=== PATIENT | male | born 1940 | race Caucasian/White ===

== ENCOUNTER 2017-11-06 11:53 | Emergency (ER) | payer MEDICARE, OTHER ==
[2017-11-06 13:05] LABS: Absolute Lymphocytes (CBC) 2.2 K/uL (0.7-4.9); Absolute Monocytes 0.6 K/uL (0.1-1.3); Absolute Neutrophil 5.1 K/uL (1.8-8.0); Basophils % 1.4 % (0-1.3); Eosinophils % 1.9 % (0-4.4); Hematocrit 42.8 % (39.6-49.0); Lymphocytes % 27.2 % (15.3-44.8); MCH 31.9 pg (27.0-35.0); MCV 95.4 fL (80-100); MPV 8.8 fL (7.6-11.3); Monocytes % 7.3 % (3.3-12.3); RBC Red Blood Cell Count 4.49 M/uL (4.33-5.43)
[2017-11-06 13:37] LABS: Protime INR 1.03
[2017-11-06 14:33] LABS: ALT/SGPT 21 U/L (12-78); AST/SGOT 15 U/L (15-37); Albumin 3.3 g/dL (3.4-5.0); Alcohol Serum/Plasma < 3 mg/dL (<3); Alkaline Phosphatase 71 U/L (45-117); BUN Blood Urea Nitrogen 16 mg/dL (7-18); Bicarbonate 27 mmol/L (21-32); Bilirubin Direct 0.1 mg/dL (0-0.2); Bilirubin Total 0.4 mg/dL (0.2-1.0); CKMB Creatine Kinase MB < 1.0 ng/mL (0.3-3.6); Creatine Phosphokinase 26 U/L (39-308); Glucose Level 136 mg/dL (74-106); Magnesium 2.1 mg/dL (1.8-2.4); NT PRO-BNP 1077 pg/mL (<450); Potassium 3.4 mmol/L (3.5-5.1); Protein, Total 6.9 g/dL (6.4-8.2); Sodium Level 147 mmol/L (136-145)
--- NOTE | 2017-11-06 14:34 | EKG ---
Test Date: 2017-11-06 Test Time: 12:23:22 Instant Print Operator: FLORIAN MEASUREMENT RESULTS: Intervals: Rate: 67 RI: QRSD: 174 QT: 478 QTc: 505 [place]: P: RI: QRS: -84 T: 90 INTERPRETIVE STATEMENTS: Ventricular-paced rhythm with occasional premature ventricular complexes Abnormal ECG No previous ECG available for comparison Electronically Signed On 11-06-17 14:33:27 CDT by Rl Patterson
--- NOTE | 2017-11-06 14:44 | RAD REPORT ---
EXAM DESCRIPTION: Omer Single View11/06/2017 1:36 pm CLINICAL HISTORY: Shortness of breath COMPARISON: 2011 FINDINGS: Left base is mildly hazy. The right lung appears clear of acute infiltrate. The heart is normal size. Pacemaker lead is in place IMPRESSION: Mild haziness to the left base may be secondary to atelectasis or mild infiltrate
[2017-11-06] MEDS ORDERED: NA CHLORIDE 0.9% 0 ML ONE (15:12)
[2017-11-06 15:17] LABS: Barbiturates NEGATIVE (NEGATIVE); Benzodiazepines POSITIVE (NEGATIVE); Cocaine NEGATIVE (NEGATIVE); METHAMPHETAM NEGATIVE (NEGATIVE); Methadone NEGATIVE (NEGATIVE); Opiates NEGATIVE (NEGATIVE); Phencyclidine NEGATIVE (NEGATIVE); THC Cannibis NEGATIVE (NEGATIVE)
[2017-11-06 15:25] LABS: Urine Blood NEGATIVE (NEG); Urine Glucose TRACE (NEG); Urine Protein 1+ (NEG)
--- NOTE | 2017-11-06 17:01 | ER ---
Nurse's Notes [facility] Name: Anuj Giron Age: 77 yrs Sex: Male : 1940 Arrival Date: 11/06/2017 Time: 11:57 Bed 26 Private MD: Diagnosis: Suicidal ideations-resolved;Essential (primary) hypertension;Type 2 diabetes mellitus;Unspecified kidney failure;Volume depletion-mild;Hypo-osmolality and hyponatremia Presentation: 11/06 11:55 Presenting complaint: EMS states: pt initial call was for difficulty breathing, upon tw2 arrival he said he feels dizzy and weak and that his SOB is nothing new, he states he wanted the [facility] to put the rope over the tree limb and that he has thought about killing himself for over a week or so now but he cant get the rope over the limb, vs stable 130/70's hr 50-80's on demand pacemaker, 167 BGL, 20g right ac, 300 ml NS. Transition of care: patient was not received from another setting of care. Onset of symptoms was November 06, 2017. Risk Assessment: Do you want to hurt yourself or someone else? Patient reports desire/thoughts of hurting themselves or someone else. Provider notified. Initial Sepsis Screen:. Care prior to arrival: Medication(s) given: Normal saline infusion, 300 ml IV initiated. 20 GA, in the right antecubital area, Glucose check: 167. 11:55 Method Of Arrival: [facility] tw2 11:55 Acuity: CAMPBELL 2 tw2 12:18 Initial Sepsis Screen: Does the patient meet any 2 criteria? No. Patient's initial tw2 sepsis screen is negative. Does the patient have a suspected source of infection? No. Patient's initial sepsis screen is negative. Historical: - Allergies: 12:04 No Known Allergies; tw2 - Home Meds: 12:04 "cant get to town to get them" [Active]; tw2 - PMHx: 12:04 Hypertension; Diabetes - NIDDM; VT; tw2 - PSHx: 12:04 pacemaker; tw2 - Immunization history:: Adult Immunizations unknown. - Social history:: Smoking status: Patient/guardian denies using tobacco. - Ebola Screening: : Patient denies exposure to infectious person Patient denies travel to an Ebola-affected area in the 21 days before illness onset. Screenin:16 Abuse screen: Denies threats or abuse. Nutritional screening: No deficits noted. tw2 Tuberculosis screening: No symptoms or risk factors identified. Fall Risk None identified. Assessment: 11:55 General: Appears in no apparent distress. unkempt, Behavior is calm, cooperative. Pain: tw2 Denies pain. Neuro: Level of Consciousness is awake, alert, obeys commands, Oriented to person, place, situation. Cardiovascular: Denies chest pain, shortness of breath, Heart tones S1 S2 Capillary refill < 3 seconds Patient's skin is warm and dry. Respiratory: Airway is patent Respiratory effort is even, unlabored, Respiratory pattern is regular, symmetrical. GI: No signs and/or symptoms were reported involving the gastrointestinal system. Abdomen is flat, Bowel sounds present X 4 quads. : No signs and/or symptoms were reported regarding the genitourinary system. EENT: No signs and/or symptoms were reported regarding the EENT system. Derm: Skin is intact, is healthy with good turgor, Skin is dry. Musculoskeletal: Range of motion: intact in all extremities. 12:31 Reassessment: provider Dr. Sanders at bedside at this time. tw2 13:01 Reassessment: Patient appears in no apparent distress at this time. Patient and/or tw2 family updated on plan of care and expected duration. Pain level reassessed. Patient is alert, oriented x 3, equal unlabored respirations, skin warm/dry/pink. 14:00 Reassessment: Patient appears in no apparent distress at this time. Patient and/or tw2 family updated on plan of care and expected duration. Pain level reassessed. Patient is alert, oriented x 3, equal unlabored respirations, skin warm/dry/pink. pt sleeping at this time, did eat dietary meal provided. 15:17 Reassessment: Patient appears in no apparent distress at this time. Patient and/or tw2 family updated on plan of care and expected duration. Pain level reassessed. Patient is alert, oriented x 3, equal unlabored respirations, skin warm/dry/pink. asked pt if i could get some blood from his iv line, pt states "no, get away from me, i dont want to do nothing", encouraged pt as to why i needed the additional blood and that i would not have to stick him again, pt states "no, get away from me, im not giving you anything", pt offered water and sprite at this time,pt refused. 16:14 Reassessment: Patient appears in no apparent distress at this time. Patient and/or tw2 family updated on plan of care and expected duration. Pain level reassessed. Patient is alert, oriented x 3, equal unlabored respirations, skin warm/dry/pink. 17:01 Reassessment: [facility], tw2 discharge papers pending, pt states "well yall are a bunch of damn liars". Psych: 11:55 Subjective: Patient's mood is sad, Delusions are denied, Hallucinations are denied tw2 Having thoughts of suicide. Plan for suicide is "several different ways, but i just couldn't get the rope over the tree to hang myself and nobody gives a damn to help me". Objective: Patient is cooperative, Speech is soft, Affect is flat. Interventions: Removed personal items and placed in bag. Patient placed in hospital gown. Suicide Risk Assessment: Sad Person Scale: Sex of patient: Male: Score 1 point. Age of patient: Score 1 point if patient is over 65. Depression: Score 1 point if signs of depression are present. Previous Attempt: Score 0 point if patient has not previously attempted suicide. Substance Abuse: Score 0 point if patient does not abuse alcohol or drugs. Rational Thinking: Score 1 point if patient is lacking rational thinking. Social Support: Score 1 point if social support is lacking and/or unavailable. Organized Plan: Score 1 point if patient had a plan in place. Relationship: Score 1 point if patient is , , , or for a single male Chronic Sickness: Score 1 point if patient has illness, chronic, debilitating, or severe. TOTAL POINTS: If total points are 7-10, the proposed clinical action is to hospitalize or commit. Implement suicide precautions. Safety Checks: Personal items have been removed. Pt denies substance abuse. Commitment: Patient will be a voluntary commitment. Vital Signs: 12:05 BP 142 / 63 LA Supine (auto/lg); Pulse 61; Resp 18; Pulse Ox 100% on R/A; Pain 0/10; tw2 12:27 Temp 97.6(TE); tw2 13:05 BP 142 / 96 LA Sitting (auto/lg); Pulse 93; Pulse Ox 100% on R/A; jp3 ED Course: 11:55 No apparent distress. Safety Checks: Personal items have been removed. The door is open tw2 or patient has been placed in a hallway bed/chair. There are no family/friend visitors at this time Sitter present at this time. 11:55 Arm band placed on Patient placed in an exam room. tw2 11:57 Patient arrived in ED. tw2 12:00 Safety Checks: Personal items have been removed. The door is open or patient has been tw2 placed in a hallway bed/chair. There are no family/friend visitors at this time Sitter present at this time. 12:00 Safety checks: Items removed: yes. Door open/sign placed on door: yes. Family/friend jp3 present: no. Sitter present: Yes. Patient has correct armband on for positive identification. Placed in gown. Side rails up X2. Valuables Left with patient. Warm blanket given. Pillow given. Sitter at bedside. 12:01 Triage completed. tw2 12:06 Dina Orellana, GEMMA is Primary Nurse. tw2 12:10 Heri Sanders MD is Attending Physician. [facility] 12:10 Maintain EMS IV. Dressing intact. Good blood return noted. Site clean \\T\\ dry. Gauge \\T\\ alfredo 3 site: 20 gauge, Right A/C. Flushed right antecubital saline lock. 12:15 No apparent distress. Resting quietly. Safety Checks: Personal items have been removed. tw2 The door is open or patient has been placed in a hallway bed/chair. There are no family/friend visitors at this time Sitter present at this time. 12:15 Safety checks: Items removed: yes. Door open/sign placed on door: yes. Family/friend alfredo3 present: no. Sitter present: Yes. 12:25 Initial lab(s) drawn, by me, held in ED. jp3 12:30 Appears agitated. Appears angry. Safety Checks: Personal items have been removed. The tw2 door is open or patient has been placed in a hallway bed/chair. There are no family/friend visitors at this time Dr. Sanders asking pt questions, pt got angry, sat up and started yelling "leave me the fuck alone, I dont want no body poking on me". 12:30 Safety checks: Items removed: yes. Door open/sign placed on door: yes. Family/friend jp3 present: no. Sitter present: Yes. 12:33 EKG done, by prior authorization technician. reviewed by Heri Sanders MD. at1 12:35 No apparent distress. pt laid back down quickly after conversation with Dr. Sanders. tw2 12:35 Diet: Patient given a regular meal tray. jp3 12:35 Initial lab(s) drawn, by me, sent to lab. jp3 12:45 No apparent distress. sitting up in bed states "i want my pants back and to get the tw2 hell out of here", pt reoriented to need to see [facility]. Safety Checks: Personal items have been removed. The door is open or patient has been placed in a hallway bed/chair. There are no family/friend visitors at this time Sitter present at this time. 12:45 Safety checks: Items removed: yes. Door open/sign placed on door: yes. Family/friend jp3 present: no. Sitter present: Yes. 13:00 Safety Checks: Personal items have been removed. The door is open or patient has been tw2 placed in a hallway bed/chair. There are no family/friend visitors at this time Sitter present at this time. 13:00 Safety checks: Items removed: yes. Door open/sign placed on door: yes. Family/friend jp3 present: no. Sitter present: Yes. 13:15 No apparent distress. Resting quietly. Safety Checks: Personal items have been removed. tw2 The door is open or patient has been placed in a hallway bed/chair. There are no family/friend visitors at this time Sitter present at this time. 13:15 Safety checks: Items removed: yes. Door open/sign placed on door: yes. Family/friend jp3 present: no. Sitter present: Yes. 13:30 Safety Checks: Personal items have been removed. The door is open or patient has been tw2 placed in a hallway bed/chair. There are no family/friend visitors at this time Sitter present at this time. 13:30 Safety checks: Items removed: yes. Door open/sign placed on door: yes. Family/friend jp3 present: no. Sitter present: Yes. 13:35 Warm blanket given. jp3 13:36 XRAY Chest (1 view) In Process Unspecified. EDMS 13:45 Safety Checks: Personal items have been removed. The door is open or patient has been tw2 placed in a hallway bed/chair. There are no family/friend visitors at this time Sitter present at this time. 13:45 Safety checks: Items removed: yes. Door open/sign placed on door: yes. Family/friend jp3 present: no. Sitter present: Yes. 14:00 No apparent distress. Resting quietly. Safety Checks: Personal items have been removed. tw2 The door is open or patient has been placed in a hallway bed/chair. There are no family/friend visitors at this time Sitter present at this time. 14:00 Safety checks: Items removed: yes. Door open/sign placed on door: yes. Family/friend jp3 present: no. Sitter present: Yes. 14:15 Safety Checks: Personal items have been removed. The door is open or patient has been tw2 placed in a hallway bed/chair. There are no family/friend visitors at this time Sitter present at this time. 14:15 Safety checks: Items removed: yes. Door open/sign placed on door: yes. Family/friend es1 present: no. Sitter present: Yes. Assisted with urinal. 14:23 Urine collected: clean catch specimen, clear, juliana colored. es1 14:30 No apparent distress. Resting quietly. Safety Checks: Personal items have been removed. tw2 The door is open or patient has been placed in a hallway bed/chair. There are no family/friend visitors at this time Sitter present at this time. 14:30 Safety checks: Items removed: yes. Door open/sign placed on door: yes. Family/friend es1 present: no. Sitter present: Yes. 14:45 Safety Checks: Personal items have been removed. The door is open or patient has been tw2 placed in a hallway bed/chair. There are no family/friend visitors at this time Sitter present at this time. 14:45 Safety checks: Items removed: yes. Door open/sign placed on door: yes. Family/friend es1 present: no. Sitter present: Yes. 15:00 Safety Checks: Personal items have been removed. The door is open or patient has been tw2 placed in a hallway bed/chair. There are no family/friend visitors at this time Sitter present at this time. 15:00 Safety checks: Items removed: yes. Door open/sign placed on door: yes. Family/friend es1 present: no. Sitter present: Yes. 15:15 Safety Checks: Personal items have been removed. The door is open or patient has been tw2 placed in a hallway bed/chair. There are no family/friend visitors at this time Sitter present at this time. 15:30 Safety Checks: Personal items have been removed. The door is open or patient has been tw2 placed in a hallway bed/chair. There are no family/friend visitors at this time Sitter present at this time. 15:36 No apparent distress. Resting quietly. pt refused additional blood draw at this time, tw2 provider notified, pt remained laying down but refused to allow access to his iv, has arms curled at this side. 15:45 Safety Checks: Personal items have been removed. The door is open or patient has been tw2 placed in a hallway bed/chair. There are no family/friend visitors at this time Sitter present at this time. 16:00 No apparent distress. Resting quietly. Safety Checks: Personal items have been removed. tw2 The door is open or patient has been placed in a hallway bed/chair. There are no family/friend visitors at this time Sitter present at this time. 16:15 Safety Checks: Personal items have been removed. The door is open or patient has been tw2 placed in a hallway bed/chair. There are no family/friend visitors at this time Sitter present at this time. 16:30 Safety Checks: Personal items have been removed. The door is open or patient has been tw2 placed in a hallway bed/chair. There are no family/friend visitors at this time Sitter present at this time. 16:45 No apparent distress. Resting quietly. Safety Checks: Personal items have been removed. tw2 The door is open or patient has been placed in a hallway bed/chair. There are no family/friend visitors at this time Sitter present at this time. 17:01 No provider procedures requiring assistance completed. IV discontinued, intact, tw2 bleeding controlled, No redness/swelling at site. Pressure dressing applied. Administered Medications: 14:35 Not Given (Patient Refused): NS 0.9% 500 ml IV at bolus once tw2 15:11 Not Given (Patient Refused): NS 0.9% 1000 ml IV at 1 bolus Per protocol; 1000 mL bolus ss 16:13 Not Given (Patient Refused): Potassium Effervescent Tablet 25 mEq PO once; dissolve in tw2 4 ounces of water or juice Outcome: 17:00 Discharge ordered by MD. perez 17:02 Discharged to [facility] tw2 17:02 Condition: stable 17:02 Instructed on discharge instructions. 17:05 Patient left the ED. jp3 Signatures: Dispatcher [employer] EDMS Heri Sanders MD MD cha gonzales, Amanda, group rooms coordinator EKG Tat1 Dina Orellana, RN RN tw2 Arthur Truong jp3 Giselle Shahid es1 Luisa Guerra RN ss Corrections: (The following items were deleted from the chart) 12:16 12:05 BP 142 / 63 Supine Auto L Arm Large; Pulse 61bpm; Pulse Ox 100% RA; jp3 tw2 15:36 15:17 Reassessment: asked pt if i could get some blood from his iv line, pt states "no, tw2 get away from me, i dont want to do nothing", encouraged pt as to why i needed the additional blood and that i would not have to stick him again, pt states "no, get away from me, im not giving you anything", pt offered water and sprite at this time,pt refused tw2
--- NOTE | 2017-11-06 17:02 | EDPHYS ---
Physician Documentation [facility] Name: Anuj Giron Age: 77 yrs Sex: Male : 1940 Arrival Date: 11/06/2017 Time: 11:57 Bed 26 Private MD: ED Physician Heri Sanders HPI: 11/06 12:40 This 77 yrs old Male presents to ER via EMS with complaints of Suicidal chris Ideation, Dizziness. 12:40 This 77 yrs old Male presents to ER via EMS with complaints of Suicidal chris Ideation, Dizziness. 12:40 The patient presents to the emergency department with anxiety, depression. Onset: The chris symptoms/episode began/occurred 2 day(s) ago. Past psychiatric history: Prior diagnosis: no previous psychiatric diagnosis known. Associated signs and symptoms: The patient has no apparent associated signs or symptoms. Severity of symptoms: At their worst the symptoms were very mild in the emergency department the symptoms are unchanged. It is unknown whether or not the patient has had similar symptoms in the past. Historical: - Allergies: 12:04 No Known Allergies; tw2 - Home Meds: 12:04 "cant get to town to get them" [Active]; tw2 - PMHx: 12:04 Hypertension; Diabetes - NIDDM; AR; tw2 - PSHx: 12:04 pacemaker; tw2 - Immunization history:: Adult Immunizations unknown. - Social history:: Smoking status: Patient/guardian denies using tobacco. - Ebola Screening: : Patient denies exposure to infectious person Patient denies travel to an Ebola-affected area in the 21 days before illness onset. ROS: 12:41 Constitutional: Negative for fever, chills, and weight loss, Eyes: Negative for injury, chris pain, redness, and discharge, ENT: Negative for injury, pain, and discharge, Neck: Negative for injury, pain, and swelling, Cardiovascular: Negative for chest pain, palpitations, and edema, Respiratory: Negative for shortness of breath, cough, wheezing, and pleuritic chest pain, Abdomen/GI: Negative for abdominal pain, nausea, vomiting, diarrhea, and constipation, Back: Negative for injury and pain, : Negative for injury, bleeding, discharge, and swelling, MS/Extremity: Negative for injury and deformity, Skin: Negative for injury, rash, and discoloration, Neuro: Negative for headache, weakness, numbness, tingling, and seizure, Allergy/Immunology: Negative for hives, rash, and allergies, Endocrine: Negative for neck swelling, polydipsia, polyuria, polyphagia, and marked weight changes, Hematologic/Lymphatic: Negative for swollen nodes, abnormal bleeding, and unusual bruising. 12:41 Psych: Positive for suicidal ideation. Exam: 12:41 Constitutional: This is a well developed, well nourished patient who is awake, alert, chris and in no acute distress. Head/Face: Normocephalic, atraumatic. Eyes: Pupils equal round and reactive to light, extra-ocular motions intact. Lids and lashes normal. Conjunctiva and sclera are non-icteric and not injected. Cornea within normal limits. Periorbital areas with no swelling, redness, or edema. ENT: Nares patent. No nasal discharge, no septal abnormalities noted. Tympanic membranes are normal and external auditory canals are clear. Oropharynx with no redness, swelling, or masses, exudates, or evidence of obstruction, uvula midline. Mucous membranes moist. Neck: Trachea midline, no thyromegaly or masses palpated, and no cervical lymphadenopathy. Supple, full range of motion without nuchal rigidity, or vertebral point tenderness. No Meningismus. Chest/axilla: Normal chest wall appearance and motion. Nontender with no deformity. No lesions are appreciated. Cardiovascular: Regular rate and rhythm with a normal S1 and S2. No gallops, murmurs, or rubs. Normal PMI, no JVD. No pulse deficits. Respiratory: Lungs have equal breath sounds bilaterally, clear to auscultation and percussion. No rales, rhonchi or wheezes noted. No increased work of breathing, no retractions or nasal flaring. Abdomen/GI: Soft, non-tender, with normal bowel sounds. No distension or tympany. No guarding or rebound. No evidence of tenderness throughout. Back: No spinal tenderness. No costovertebral tenderness. Full range of motion. Male : Normal genitalia with no discharge or lesions. Skin: Warm, dry with normal turgor. Normal color with no rashes, no lesions, and no evidence of cellulitis. MS/ Extremity: Pulses equal, no cyanosis. Neurovascular intact. Full, normal range of motion. Neuro: Awake and alert, GCS 15, oriented to person, place, time, and situation. Cranial nerves II-XII grossly intact. Motor strength 5/5 in all extremities. Sensory grossly intact. Cerebellar exam normal. Normal gait. 12:41 Psych: Behavior/mood is aggressive, Affect is animated, Oriented to person, place, time, Patient has no thoughts/intents to harm self or others. Judgement / Insight is not able to determine. Vital Signs: 12:05 BP 142 / 63 LA Supine (auto/lg); Pulse 61; Resp 18; Pulse Ox 100% on R/A; Pain 0/10; tw2 12:27 Temp 97.6(TE); tw2 13:05 BP 142 / 96 LA Sitting (auto/lg); Pulse 93; Pulse Ox 100% on R/A; jp3 MDM: 12:10 Patient medically screened. [facility] 12:42 Data reviewed: vital signs, nurses notes, lab test result(s), EKG, radiologic studies. [facility] 11/06 12:39 Order name: Basic Metabolic Panel; Complete Time: 14:42 [facility] 11/06 12:39 Order name: CBC with Diff; Complete Time: 14:07 [facility] 11/06 12:39 Order name: Ckmb; Complete Time: 14:42 [facility] 11/06 12:39 Order name: CPK; Complete Time: 14:42 [facility] 11/06 12:39 Order name: LFT's; Complete Time: 14:42 [facility] 11/06 12:39 Order name: Magnesium; Complete Time: 14:42 [facility] 11/06 12:39 Order name: NT PRO-BNP; Complete Time: 14:42 [facility] 11/06 12:39 Order name: PT-INR; Complete Time: 14:07 [facility] 11/06 12:39 Order name: Ptt, Activated; Complete Time: 14:07 [facility] 11/06 12:39 Order name: Troponin (emerg Dept Use Only); Complete Time: 14:07 [facility] 11/06 12:39 Order name: Urine Culture [facility] 11/06 12:39 Order name: TSH; Complete Time: 14:42 [facility] 11/06 12:39 Order name: Acetaminophen; Complete Time: 14:42 [facility] 11/06 12:39 Order name: ETOH Level; Complete Time: 14:42 [facility] 11/06 12:15 Order name: Diet Ada 1800 Aamir; Complete Time: 12:15 tw2 11/06 12:39 Order name: XRAY Chest (1 view); Complete Time: 15:33 [facility] 11/06 12:39 Order name: EKG; Complete Time: 12:40 [facility] 11/06 12:39 Order name: Cardiac monitoring; Complete Time: 12:40 [facility] 11/06 12:39 Order name: EKG - Nurse/Tech; Complete Time: 12:40 [facility] 11/06 12:39 Order name: IV Saline Lock; Complete Time: 12:40 [facility] 11/06 12:39 Order name: Labs collected and sent; Complete Time: 12:40 [facility] 11/06 12:39 Order name: O2 Per Protocol; Complete Time: 12:40 [facility] 11/06 12:39 Order name: Salicylate; Complete Time: 14:07 [facility] 11/06 12:39 Order name: Urine Drug Screen; Complete Time: 15:33 [facility] 11/06 14:23 Order name: Urine Dipstick--Ancillary (enter results); Complete Time: 15:33 11/06 14:45 Order name: AMMONIA [facility] 11/06 14:45 Order name: Tylenol Level [facility] 11/06 12:39 Order name: O2 Sat Monitoring; Complete Time: 12:40 [facility] 11/06 12:39 Order name: Urine Dipstick-Ancillary (obtain specimen); Complete Time: 14:27 [facility] 11/06 12:39 Order name: Urine Dipstick-Ancillary (obtain specimen); Complete Time: 14:27 [facility] Administered Medications: 14:35 Not Given (Patient Refused): NS 0.9% 500 ml IV at bolus once tw2 15:11 Not Given (Patient Refused): NS 0.9% 1000 ml IV at 1 bolus Per protocol; 1000 mL bolus ss 16:13 Not Given (Patient Refused): Potassium Effervescent Tablet 25 mEq PO once; dissolve in tw2 4 ounces of water or juice Disposition: 11/06/17 17:00 Discharged to Home. Impression: Suicidal ideations - resolved, Essential (primary) hypertension, Type 2 diabetes mellitus, Unspecified kidney failure, Volume depletion - mild, Hypo-osmolality and hyponatremia. - Condition is Stable. - Discharge Instructions: Dehydration, Adult, Type 2 Diabetes Mellitus, Diagnosis, Adult, Hypertension, Hyponatremia, Suicidal Feelings: How to Help Yourself, Hypertension, [id number], How to Take Your Blood Pressure, [id number], Dehydration, Adult, [id number], Type 2 Diabetes Mellitus, Diagnosis, Adult, [id number], Managing Your Hypertension. - Medication Reconciliation Form, Thank You Letter, Antibiotic Education, Prescription Opioid Use form. - Follow up: Private Physician; When: 2 - 3 days; Reason: Recheck today's complaints, Continuance of care, Re-evaluation by your physician. - Problem is new. - Symptoms have improved. Signatures: Dispatcher [employer] EDOR Heri Sanders MD MD cha Wise, Tara, RN RN tw2 Arthur Truong jp3 Luisa Guerra RN ss Corrections: (The following items were deleted from the chart) 17:05 17:00 11/06/2017 17:00 Discharged to Home. Impression: Suicidal ideations - resolved; jp3 Essential (primary) hypertension; Type 2 diabetes mellitus; Unspecified kidney failure; Volume depletion - mild; Hypo-osmolality and hyponatremia. Condition is Stable. Discharge Instructions: Type 2 Diabetes Mellitus, Diagnosis, Adult, Hypertension, Suicidal Feelings: How to Help Yourself, Hypertension, [id number], How to Take Your Blood Pressure, [id number], Type 2 Diabetes Mellitus, Diagnosis, Adult, Yogh-xr-[id number], Managing Your Hypertension, Dehydration, Adult, Hyponatremia, Dehydration, Adult, [id number]. Forms are Medication Reconciliation Form, Thank You Letter, Antibiotic Education, Prescription Opioid Use. Follow up: Private Physician; When: 2 - 3 days; Reason: Recheck today's complaints, Continuance of care, Re-evaluation by your physician. Problem is new. Symptoms have improved. chris
== END 2017-11-06 17:05 | disposition home or self-care (01) ==
LOC: ER 11:53
DX: E86.9 Volume depletion, unspecified (principal); E87.1 Hypo-osmolality and hyponatremia; I10 Essential (primary) hypertension; E11.9 Type 2 diabetes mellitus without complications; N19 Unspecified kidney failure; I25.2 Old myocardial infarction; Z95.0 Presence of cardiac pacemaker
CPT/HCPCS: 36415; 71045; 80048; 80076; 80307; 80320; 80329; 81003; 82550; 82553; 83735; 83880; 84443; 84484; 85025; 85610; 85730; 87086; 87088; 93005; 99285; J7030